=== PATIENT | male | born 1985 | race Two or more races ===

== ENCOUNTER 2024-05-02 07:37 | Emergency (ER) | payer MEDICAID ==
[~2024-05-02] VITALS: Ht 170.2 cm; Wt 94.2 kg
[2024-05-02 08:49] LABS: ALBUMIN 3.9 G/DL (3.4-5.0); ANION GAP 14 (8-16); BLOOD UREA NITROGEN 13 MG/DL (7-18); BUN/CREATININE RATIO 24.5 (10.0-20.0); CALCIUM 9.2 MG/DL (8.5-10.1); CHLORIDE 95 MMOL/L (99-107); CREATININE 0.53 MG/DL (0.60-1.10); GLUCOSE 288 MG/DL (70-104); SODIUM 132 MMOL/L (135-145); TOTAL CARBON DIOXIDE 22.7 MMOL/L (24-32); eCRCL 177 ML/MIN; eGFR > 90 ML/MIN
[2024-05-02 08:51] LABS: POTASSIUM 4.2 MMOL/L (3.5-5.1)
[2024-05-02 08:59] LABS: ALBUMIN/GLOBULIN RATIO 0.8 (1.1-1.5); ALKALINE PHOSPHATASE 185 IU/L (46-116); BILIRUBIN,TOTAL 1.2 MG/DL (0.1-1.0); TOTAL PROTEIN 8.6 G/DL (6.4-8.2)
[2024-05-02] MEDS: aspirin 325mg tablet, delayed-release (Ecotrin) PO ONE (09:03)
[2024-05-02 09:18] LABS: ALANINE AMINOTRANSFERASE 210 U/L (12-78); ASPARTATE AMINO TRANSFERASE 147 U/L (10-37)
[2024-05-02 09:33] LABS: BILIRUBIN,DIRECT 0.3 MG/DL (0-0.3)
[2024-05-02 09:36] LABS: HEMATOCRIT 46.7 % (42.0-52.0); HEMOGLOBIN 16.3 g/dl (14.0-17.9); LYMPHOCYTES # (AUTO) 2.1 X10'3 (1.1-4.8); LYMPHOCYTES % (AUTO) 49.2 % (21-51); MEAN CORPUSCULAR HEMOGLOBIN 31.8 PG (27.0-31.0); MEAN CORPUSCULAR HGB CONC 34.8 g/dL (33.0-36.5); MEAN CORPUSCULAR VOLUME 91.3 FL (78-98); MEAN PLATELET VOLUME 8.5 FL (7.4-10.4); MONOCYTES # (AUTO) 0.5 X10'3 (0-0.9); NEUTROPHILS # (AUTO) 1.5 X10'3 (1.8-7.7); NEUTROPHILS % (AUTO) 36.8 % (42-75); PLATELET COUNT 163 X10'3 (140-440); RED BLOOD COUNT 5.12 X10'6 (4.70-6.10); RED CELL DISTRIBUTION WIDTH 13.8 % (11.5-14.5); WHITE BLOOD COUNT 4.2 X10'3 (4.5-11.0)
[2024-05-02 10:39] LABS: PRO BRAIN NATRIURETIC PEPTIDE < 30 PG/ML (0-125)
[2024-05-02] MEDS: HYDROchlorothiazide 25mg tablet PO ONE (10:45)
[2024-05-02] MEDS ORDERED: HYDR25TA5 PO (11:00)
[2024-05-02] MEDS ORDERED: METF-1203 PO (11:00)
[2024-05-02 11:31] VITALS: BP 130/86; PULSE 96; RESP 15; TEMP 97.9; O2SAT 97
== END 2024-05-02 11:36 | disposition home or self-care (01) ==
LOC: ER 07:38
DX: M94.0 Chondrocostal junction syndrome [Tietze] (principal); K70.9 Alcoholic liver disease, unspecified; R11.0 Nausea; I10 Essential (primary) hypertension; E11.9 Type 2 diabetes mellitus without complications; F17.210 Nicotine dependence, cigarettes, uncomplicated; E78.00 Pure hypercholesterolemia, unspecified; Z79.84 Long term (current) use of oral hypoglycemic drugs; Z79.899 Other long term (current) drug therapy
CPT/HCPCS: 36415; 71045; 80048; 80076; 83880; 84484; 85025; 93005; 99285